=== PATIENT | male | born 1960 | race Two or more races ===

== ENCOUNTER 2017-03-21 05:22 | Inpatient (IN) | payer BC ==
--- NOTE | 2017-03-18 16:38 | Pre-op HX & Phy Repo 2 SIG ---
DATE OF ADMISSION: 03/21/2017 HISTORY OF PRESENT ILLNESS: The patient is a 57-year-old preoperative male to female sexual reassignment surgery, in overall good health. OPERATIONS: Hemorrhoidectomy at age 20 and abdominoplasty 35 years ago. MEDICATIONS: Finasteride, spironolactone, and estradiol in the past. ALLERGIES: None. REVIEW OF SYSTEMS: The patient denies any gastrointestinal or genitourinary symptomatology. PHYSICAL EXAMINATION: GENERAL: The patient is 5 foot 7 inches and 209 pounds. She had previously been 243 pounds. ABDOMEN: Slightly obese. There is a diastasis rectus. There are healed scars from abdominoplasty. The abdomen is soft and nontender. EXTREMITIES: Femoral pulses are 2+. RECTAL: Reveals the perianal skin and tissue to be normal with no prolapse with straining. IMPRESSION: Sexual reassignment surgery, male to female. DISCUSSION: I have had a complete discussion with the patient regarding the nature of my role in the surgery to be performed by Dr. Alex Justin, creating the space for the vagina. I have discussed the nature of the procedure, options, and risks including bleeding, infection, injury to urinary tract or rectum that could require subsequent additional operations including potential colostomy, urinary or evacuation dysfunction that could require additional treatment, etc. All questions have been answered. The patient understands and agrees to proceed. Alessio Gee M.D. DR: JANETH JOB#: [id number] CC: JERRY
[2017-03-21] VITALS (14 sets, daily range): BP systolic 116–166; BP diastolic 60–98
[~2017-03-21] VITALS: Ht 170.2 cm; Wt 97.5 kg
[2017-03-21 06:24] LABS: ANION GAP 18 (5-15); CALCIUM 8.9 mg/dL (8.6-10.2); CARBON DIOXIDE 20 mEQ/L (20-30); CHLORIDE 99 mEQ/L (98-107); CREATININE 0.9 mg/dL (0.5-0.9); GLOMERULAR FILTRATION RATE > 60 mL/min (>60); HEMOLYSIS 4; POTASSIUM 3.9 mEQ/L (3.4-4.9); SODIUM 137 mEQ/L (135-145)
[2017-03-21] MEDS ORDERED: PROSCAR5 MG ORAL (06:33)
[2017-03-21] MEDS ORDERED: SPIRONOLACTONE100 MG ORAL (06:33)
[2017-03-21] MEDS ORDERED: Bacitracin Oint 15gm Tube TOPIC ONE (07:15)
[2017-03-21] MEDS ORDERED: Surgicel 4in x 8in TOPIC ONE (07:15)
[2017-03-21] MEDS ORDERED: Lidocaine 0.5% Epi 50 mL Vial ONE (07:16)
[2017-03-21] MEDS ORDERED: Bacitracin 50000 Units Vial ONE (07:16)
[2017-03-21] MEDS ORDERED: Lidocaine 2% 20mg/ml/Epi 0.005mg/ml 20ml vial ONE (07:27)
[2017-03-21] MEDS ORDERED: Nimbex 2mg/ml Inj 10ML IVP ONE (07:30)
[2017-03-21] MEDS ORDERED: LR 1000ml ONE (07:30)
[2017-03-21] MEDS ORDERED: fentaNYL 100 mcg/2 mL IV ONE (07:30)
[2017-03-21] MEDS ORDERED: Midazolam 2mg/2ml Inj ONE (07:30)
[2017-03-21] MEDS ORDERED: NS Irrig 1000ml ONE (07:30)
[2017-03-21] MEDS ORDERED: Propofol 10mg/ml 20ml IV ONE (07:30)
[2017-03-21] MEDS ORDERED: Sterile Water Irrig 1000ml IRRIG ONE (07:30)
[2017-03-21] MEDS ORDERED: Bupivacaine w/Epi 0.25% 30ml Vial INJ ONE (07:35)
[2017-03-21] MEDS ORDERED: Meperidine 25mg/0.5ml Inj IV PRN ×2 (08:45→16:15)
[2017-03-21] MEDS ORDERED: LORazepam Inj 2mg/ml 1ml IV PRN ×2 (08:45→16:15)
[2017-03-21] MEDS ORDERED: Hydromorphone 0.5mg/0.5ml inj IVP PRN ×3 (08:45→16:30)
[2017-03-21] MEDS ORDERED: PCA HYDROmorphone 1mg/ml 30 ML IV PRN (08:45)
[2017-03-21] MEDS ORDERED: LR 1000ml 1,000 ML IV SCH ×2 (08:45→16:30)
[2017-03-21] MEDS ORDERED: LR 1000ml 1,000 ML IVLG SCH (08:45)
--- NOTE | 2017-03-21 09:00 | Anethesia Preoperative Eval ---
Anesthesia Pre-op PMH/ROS General Date of Evaluation: March 21, 2017 Time of Evaluation: 07:30 Anesthesiologist: Phoebe ASA Score: ASA 1 Mallampati Score Class I : Soft palate, uvula, fauces, pillars visible Class II: Soft palate, uvula, fauces visible Class III: Soft palate, base of uvula visible Class IV: Only hard plate visible Mallampati Classification: Class III Surgeon: Margoth Diagnosis: Gender dysphoria Surgical Procedure: Sexual reassignment male to female Family History: no anesthesia problems Allergies: Coded Allergies: No Known Allergies (Unverified , 03/17/17) Medications: see eMAR Past Medical History Cardiovascular: Denies: CAD, HTN, NC, arrhythmia, other, valve dz Pulmonary: Denies: COPD, SHERI, asthma, other Gastrointestinal/Genitourinary: Denies: CRI, ESRD, GERD, other Neurologic/Psychiatric: Denies: CVA, TIA, dementia, depression/anxiety, other Endocrine: Denies: DM, hypothyroidism, other, steroids HEENT: Denies: [place] (R), cataract (L), cataract (R), glaucoma, other Hematology/Immune: Denies: DVT, anemia, bleeding disorder, other Musculoskeletal/Integumentary: Denies: DDD, DJD, OA, RA, edema, other PMH Narrative: Denies significant medical history PSxH Narrative: Hemorrhoidectomy, abdominoplasty Anesthesia Pre-op Phys. Exam Physician Exam Last Vital Signs Date Time Temp Pulse Resp B/P Pulse Ox O2 Delivery O2 Flow Rate FiO2 03/21/17 06:05 98.6 84 18 130/84 100 Room Air Constitutional: NAD Neurologic: CN 2-12 intact Cardiovascular: RRR, no M/R/G Respiratory: CTA Gastrointestinal: S/NT/ND Airway Exam Mallampati Score: Class III MO: full ROM: full Teeth: intact Anesthesia Pre-op A/P Labs Chemistry Test 03/21/17 05:45 Sodium Level 137 mEQ/L (135-145) Potassium Level 3.9 mEQ/L (3.4-4.9) Chloride Level 99 mEQ/L (98-107) Carbon Dioxide Level 20 mEQ/L (20-30) Anion Gap 18 (5-15) H Blood Urea Nitrogen 13 mg/dL (7-23) Creatinine 0.9 mg/dL (0.5-0.9) Estimat Glomerular Filtration Rate > 60 mL/min (>60) Glucose Level 126 mg/dL (74-106) H Calcium Level 8.9 mg/dL (8.6-10.2) Studies Pre-op Studies: EKG - NSR, CXR - NAD Risk Assessment & Plan Assessment: Healthy Plan: GETA, [place] scope intubation Status Change Before Surgery: No Pre-Antibiotics Drug: Ancef, Gentamycin Given Within 1 Hr of Incision: Yes Time Given: 08:00 ANNETTE THURMAN M.D. March 21, 2017 09:00
--- NOTE | 2017-03-21 09:02 | Immediate Post-Op Evaluation ---
Immediate Post-Op Evalulation Immediate Post-Op Evalulation Procedure: Sexual reassignment male to female Date of Evaluation: March 21, 2017 Time of Evaluation: 16:00 IV Fluids: 3000 Estimated Blood Loss: 350 Urinary Output: 350 Blood Pressure Systolic: 137 Blood Pressure Diastolic: 89 Pulse Rate: 79 Respiratory Rate: 17 O2 Sat by Pulse Oximetry: 98 Temperature (Fahrenheit): 97.1 Pain Score (1-10): 0 Nausea: No Vomiting: No Complications No complication Patient Status: reacts, patent, extubated, none Hydration Status: adequate Drug: Ancef, Gentamycin Given Within 1 Hr of Incision: Yes Time Given: 08:00 ANNETTE THURMAN M.D. March 21, 2017 09:02
[2017-03-21] MEDS ORDERED: Rate Change PCA 1 Each MISC PRN (14:00)
--- NOTE | 2017-03-21 16:17 | Pre-Procedure Note/Attestation ---
Pre-Procedure Note/Attestation Complete Prior to Procedure Planned Procedure: not applicable Procedure Narrative: Male to female sexual reassignment Indications for Procedure Pre-Operative Diagnosis: gender dysphoria Attestation I attest that I discussed the nature of the procedure; its benefits; risks and complications; and alternatives (and the risks and benefits of such alternatives ), prior to the procedure, with the patient (or the patient's legal entry level marketing representative). I attest that, if there was a reasonable possibility of needing a blood transfusion, the patient (or the patient's legal entry level marketing representative) was given the [facility] standardized written summary, pursuant to the [place] Blood Safety Act ([place] Health and Safety Code # 1645, as amended). I attest that I re-evaluated the patient just prior to the surgery and that there has been no change in the patient's H&P, except as documented below: MIGUEL MCGARRY March 21, 2017 16:17
[2017-03-21] MEDS: PCA HYDROmorphone 1mg/ml 30 ML IV PRN (17:03)
[2017-03-21 17:12] LABS: EOSINOPHILS % (AUTO) 0.3 % (0.0-3.0); LYMPHOCYTES % (AUTO) 11.4 % (20.0-45.0); MEAN CORPUSCULAR HEMOGLOBIN 33.9 PG (27.0-31.0); MEAN CORPUSCULAR HGB CONC 35.6 G/DL (32.0-36.0); MEAN CORPUSCULAR VOLUME 95 FL (80-99); MEAN PLATELET VOLUME 6.8 FL (6.5-10.1); MONOCYTES % (AUTO) 5.5 % (1.0-10.0); NEUTROPHILS % (AUTO) 81.9 % (45.0-75.0); PLATELET COUNT 202 K/UL (150-450); RED BLOOD COUNT 2.95 M/UL (4.20-5.40); RED CELL DISTRIBUTION WIDTH 13.3 % (11.6-14.8); WHITE BLOOD COUNT 16.2 K/UL (4.8-10.8)
[2017-03-21] MEDS: D5 1/2NS w/KCl 20mEq 1,000 ML IV SCH (18:39)
[2017-03-21] MEDS: PCA shift volume MISC SCH (19:27)
--- NOTE | 2017-03-21 20:19 | Operative Note - Dictated ---
DATE OF OPERATION: 03/21/2017 SURGEON: Alessio Gee M.D. ANESTHESIOLOGIST: Lucien Sandhu M.D. PREOPERATIVE DIAGNOSIS: Gender dysphoria. POSTOPERATIVE DIAGNOSIS: Gender dysphoria. OPERATION PERFORMED: Creation of the space for the vagina with sexual reassignment surgery. DESCRIPTION OF PROCEDURE: I entered the operating room at the appropriate stage of the operation with preliminary steps performed by the primary surgeon, Dr. Alex Justin. With a rigid sigmoidoscope in the rectum, I incised the central perineal tendon with cautery, and then with blunt and cautery dissection created a space between the urethra and prostate anteriorly and the rectum posteriorly. The space measured 11.5 cm in depth and approximately 3 fingerbreadths in width. Hemostasis was carefully achieved with cautery. Following completion of the dissection, saline was placed into the operative field and then sigmoidoscopy performed with insufflation. There was no evidence of extravasation and no indication of rectal trauma from inspection with the sigmoidoscope. Air was suctioned out of the rectum and the sigmoidoscope removed. A Betadine soaked vaginal pack was packed into the depths of the space for the vagina and the procedure was then continued by Dr. Justin. Alessio Gee M.D. DR: JANETH JOB#: [id number] CC: JERRY
[2017-03-21 20:28] LABS: MEAN CORPUSCULAR HEMOGLOBIN 33.2 PG (27.0-31.0); MEAN CORPUSCULAR HGB CONC 34.9 G/DL (32.0-36.0); MEAN CORPUSCULAR VOLUME 95 FL (80-99); MEAN PLATELET VOLUME 7.3 FL (6.5-10.1); PLATELET COUNT 181 K/UL (150-450); RED BLOOD COUNT 2.86 M/UL (4.20-5.40); RED CELL DISTRIBUTION WIDTH 12.9 % (11.6-14.8); WHITE BLOOD COUNT 17.4 K/UL (4.8-10.8)
[2017-03-21 21:28] LABS: ANISOCYTOSIS 1+; BAND NEUTROPHILS % (MANUAL) 1 % (0-8); BASOPHILS % (MANUAL) 0 % (0-2); EOSINOPHILS % (MANUAL) 1 % (0-3); HYPOCHROMASIA 1+; LYMPHOCYTES % (MANUAL) 11 % (20-45); NEUTROPHILS % (MANUAL) 81 % (45-75); PLATELET ESTIMATE ADEQUATE; PLATELET MORPHOLOGY NORMAL; TOTAL CELLS COUNTED 100
[2017-03-21] MEDS: BuPROPion SR 150mg tab ORAL SCH (22:19)
[2017-03-22] VITALS (8 sets, daily range): BP systolic 96–123; BP diastolic 45–74
--- NOTE | 2017-03-22 00:09 | Operative Note - Dictated ---
DATE OF OPERATION: 03/21/2017 PREOPERATIVE DIAGNOSIS: Male to female gender dysphoria. POSTOPERATIVE DIAGNOSIS: Male to female gender dysphoria. PROCEDURE: Male to female sexual reassignment using penile inversion technique with vaginoplasty augmented with scrotal full-thickness skin graft. SURGEON: Alex Justin M.D. ANESTHESIA: General. 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 She has been on hormones. She has fulfilled other requirements for sexual reassignment surgery. The patient has adequate penile skin, but has a relatively hidden penis, which was uncircumcised. The patient is significantly overweight. She underwent genital electrolysis. DESCRIPTION OF OPERATION: The patient was given general anesthesia. She was placed on lithotomy position and prepped and draped in usual manner. Scrotal full-thickness skin graft was then taken from the penoscrotal junction to the perineum with the lateral scrotum left on each side. The skin graft was then set aside for use for the vagina. A circumcision incision was then made distally. The penile skin was then elevated off the Mckay's fascia. The penis was then transposed into the defect left by the removal of the scrotum. The right testicle was followed along the tunica vaginalis up to the external ring. The spermatic cord was clamped, cut, and double suture ligated with #0 silk sutures. Similar procedure was performed on the left side. The patient was extremely fat. Dissection proceeded down to the crura. A #1 Ethibond suture was then taken around the shira of each corporal body. A blunt sharp dissection was done over the pubic symphysis to dissect the subcutaneous tissue off of the lower rectus. This was done enough to be able to mobilize the penile skin and inverted into the vagina. In order to keep it in place, a bolster of #1 silk through the skin down to the rectus and through the skin again was tied over a [address] Alessio Gee then proceeded to dissect the vaginal space. He was able to get 11.5 cm of depth. The scrotal skin graft was then deflated to remove all subcutaneous tissue. Vaginal stent was a 14 cm x 4 cm specially made tissue security door installer. The skin graft was then formed over the security door installer with interrupted and then running 4-0 Vicryl sutures. The inverted penile skin was then sutured to the skin graft over the vaginal stent. Some of the foreskin was removed, but some was left remaining. There was adequate skin. The skin graft was formed over the vaginal stent with 100 mL inside. An incision was then made just lateral to the urethra on each side of the penis through the tunica albuginea. The tunica was then opened from the shira on each side up to the distal penis. The spongy tissue was dissected off of the inside of the tunica and removed. The cavernosal vessels were clamped, cut, and suture ligated with 4-0 Monocryl sutures. At the 12 o'clock location of the glans, a pentagonal shape portion of the glans was marked to make the neoclitoris. The base was on the tunica. An incision was then made through the glans around the neoclitoris. Using a Cortez scissors through the tip of the tunica, the neoclitoris was released from the rest of the glans. There was excellent bleeding from the tip of the neoclitoris. The neoclitoris was intact with the tunica and the neurovascular bundles. There was some distal penile skin that was left attached to the neoclitoris. This was then sutured on the each side with running 5-0 Monocryl. It was then sutured to itself dorsally to create a clitoral call. The tunica was then folded over itself over the pubic symphysis and sutured in place with 2-0 Monocryl sutures to stabilize the neoclitoris. The whole bulbocavernosus muscle was then dissected off of the bulb. The urethra was then cut in the proximal bulb. The spongy tissue was sharply dissected ventrally as much removed as possible. The urethra was spatulated at the 6 o'clock position. The urethral mucosa was then sutured to the bulb of the spongiosum with running locking 4-0 Monocryl suture. Vaginal packing from Dr. Gee was removed. The penile vaginal stent was then inserted into the vaginal space. An incision was made at the 6 o'clock, so that there would not be a high posterior lip. It was then sutured in place with interrupted 3-0 Vicryl sutures at the 5 and 7 o'clock position. An inverted U-incision was made over the neoclitoris and the inverted penile skin. Neoclitoris was then delivered and sutured in place with a running 5-0 Monocryl suture. A vertical incision was made over the neourethra, which was also delivered was then inverted through the inverted penile skin. It was then sutured to the inverted penile skin with a running locking 4-0 Monocryl suture. A 2-0 Monocryl suture was then taken lateral to the neoclitoris on each side from the skin to the endopelvic fascia and out to the skin again to create a sulcus on the lateral to the medial clitoris. A #7 Dae-Armas drain was then placed through a separate stab incision in the left perineum and placed lateral to the neovagina at the 3 o'clock position. A #10 Dae-Armas drain was placed through a stab incision in the right perineum to go along the right side of the wound then up into the pubic area. The labia majora were then formed by excising the dog-ears anteriorly on each side. Extra fat was removed on each side of the labia majora. The inverted penile skin was sutured to the introitus with interrupted 3-0 Monocryl suture on the posterior half. Anteriorly, buried 3-0 Monocryls were used through the subdermal tissue followed by subcuticular sutures of 4-0 Monocryls in the skin. There was good symmetry of the labia majora. A bolster was then placed on each side of the introitus to prevent the vaginal stent from being expelled. The patient tolerated the procedure well and left the operating room in good condition. Alex Justin M.D. DR: ROHIT JOB#: [id number] CC: JERRY
[2017-03-22] MEDS: ceFAZolin sod 1 GM in D5W 55 ML IV SCH ×2 (00:29→08:01)
[2017-03-22] MEDS: D5 1/2NS w/KCl 20mEq 1,000 ML IV SCH (02:00)
[2017-03-22 04:37] LABS: BASOPHILS % (AUTO) 0.2 % (0.0-2.0); EOSINOPHILS % (AUTO) 0.8 % (0.0-3.0); LYMPHOCYTES % (AUTO) 15.5 % (20.0-45.0); MEAN CORPUSCULAR HEMOGLOBIN 30.7 PG (27.0-31.0); MEAN CORPUSCULAR HGB CONC 33.9 G/DL (32.0-36.0); MEAN CORPUSCULAR VOLUME 91 FL (80-99); MEAN PLATELET VOLUME 7.8 FL (6.5-10.1); MONOCYTES % (AUTO) 7.3 % (1.0-10.0); NEUTROPHILS % (AUTO) 76.2 % (45.0-75.0); PLATELET COUNT 190 K/UL (150-450); RED BLOOD COUNT 2.63 M/UL (4.20-5.40); RED CELL DISTRIBUTION WIDTH 12.7 % (11.6-14.8)
--- NOTE | 2017-03-22 06:41 | 48 Hour Post Anesthesia Eval ---
Post Anesthesia Evaluation Procedure: Sexual reassignment male to female Date of Evaluation: March 22, 2017 Time of Evaluation: 06:30 Blood Pressure Systolic: 129 0: 78 Pulse Rate: 88 Respiratory Rate: 18 Temperature (Fahrenheit): 98.2 O2 Sat by Pulse Oximetry: 100 Airway: patent Nausea: No Vomiting: No Pain Intensity: 1 Hydration Status: adequate Cardiopulmonary Status: Stable Mental Status/LOC: patient returned to baseline Follow-up Care/Observations: As per surgery Post-Anesthesia Complications: No anesthetic complication Follow-up care needed: N/A ANNETTE THURMAN M.D. March 22, 2017 06:41
[2017-03-22] MEDS: PCA shift volume MISC SCH ×2 (07:00→19:10)
--- NOTE | 2017-03-22 08:52 | General Progress Note ---
Progress Note Progress Note Afebrile, VSS. Wounds fine. Moderate edema and drainage. Hce 23 so will give one unit autologous and check Hct tonight. MIGUEL MCGARRY March 22, 2017 08:52
[2017-03-22] MEDS: BuPROPion SR 150mg tab ORAL SCH ×2 (09:53→17:13)
[2017-03-22] MEDS: PCA HYDROmorphone 1mg/ml 30 ML IV PRN (17:12)
[2017-03-22 19:13] LABS: BASOPHILS % (AUTO) 0.3 % (0.0-2.0); EOSINOPHILS % (AUTO) 0.8 % (0.0-3.0); LYMPHOCYTES % (AUTO) 13.2 % (20.0-45.0); MEAN CORPUSCULAR HEMOGLOBIN 32.8 PG (27.0-31.0); MEAN CORPUSCULAR HGB CONC 35.4 G/DL (32.0-36.0); MEAN CORPUSCULAR VOLUME 93 FL (80-99); MONOCYTES % (AUTO) 5.3 % (1.0-10.0); NEUTROPHILS % (AUTO) 80.4 % (45.0-75.0); PLATELET COUNT 156 K/UL (150-450); RED CELL DISTRIBUTION WIDTH 12.7 % (11.6-14.8); WHITE BLOOD COUNT 11.7 K/UL (4.8-10.8)
[2017-03-23] VITALS (8 sets, daily range): BP systolic 121–145; BP diastolic 66–86
[2017-03-23 06:11] LABS: BASOPHILS % (AUTO) 0.3 % (0.0-2.0); MEAN CORPUSCULAR HEMOGLOBIN 30.3 PG (27.0-31.0); MEAN CORPUSCULAR HGB CONC 32.8 G/DL (32.0-36.0); MEAN CORPUSCULAR VOLUME 93 FL (80-99); MEAN PLATELET VOLUME 7.1 FL (6.5-10.1); MONOCYTES % (AUTO) 7.1 % (1.0-10.0); NEUTROPHILS % (AUTO) 75.6 % (45.0-75.0); PLATELET COUNT 180 K/UL (150-450); RED BLOOD COUNT 3.19 M/UL (4.20-5.40); RED CELL DISTRIBUTION WIDTH 12.7 % (11.6-14.8); WHITE BLOOD COUNT 11.3 K/UL (4.8-10.8)
[2017-03-23] MEDS: PCA shift volume MISC SCH ×2 (07:22→19:06)
[2017-03-23] MEDS: BuPROPion SR 150mg tab ORAL SCH ×2 (08:06→18:22)
[2017-03-23] MEDS ORDERED: Enoxaparin 40mg Inj SUBQ SCH (13:00)
[2017-03-23] MEDS ORDERED: Rate Change PCA 1 Each MISC PRN (13:00)
--- NOTE | 2017-03-23 13:17 | General Progress Note ---
Progress Note Progress Note Afebrile VSS/ Wounds fine.. Hct 29 after two units. Doing fine MIGUEL MCGARRY March 23, 2017 13:17
[2017-03-23] MEDS: Enoxaparin 40mg Inj SUBQ SCH (13:26)
[2017-03-23] MEDS ORDERED: PCA HYDROmorphone 1mg/ml 30 ML IV PRN (13:30)
[2017-03-24] VITALS (7 sets, daily range): BP systolic 104–135; BP diastolic 55–78
[2017-03-24] MEDS: PCA shift volume MISC SCH (07:08)
--- NOTE | 2017-03-24 07:53 | General Progress Note ---
Progress Note Progress Note Afebrile. Doing very well. MIGUEL Lewis JP March 24, 2017 07:52
[2017-03-24] MEDS: BuPROPion SR 150mg tab ORAL SCH ×2 (08:34→17:42)
[2017-03-24] MEDS: Enoxaparin 40mg Inj SUBQ SCH (08:38)
[2017-03-24 09:13] LABS: BASOPHILS % (AUTO) 0.7 % (0.0-2.0); EOSINOPHILS % (AUTO) 5.7 % (0.0-3.0); LYMPHOCYTES % (AUTO) 17.4 % (20.0-45.0); MEAN CORPUSCULAR HEMOGLOBIN 30.5 PG (27.0-31.0); MEAN CORPUSCULAR HGB CONC 32.9 G/DL (32.0-36.0); MEAN CORPUSCULAR VOLUME 93 FL (80-99); MEAN PLATELET VOLUME 7.5 FL (6.5-10.1); NEUTROPHILS % (AUTO) 69.2 % (45.0-75.0); PLATELET COUNT 191 K/UL (150-450); RED CELL DISTRIBUTION WIDTH 12.5 % (11.6-14.8); WHITE BLOOD COUNT 7.5 K/UL (4.8-10.8)
[2017-03-24] MEDS: Zolpidem 5mg tab ORAL PRN (23:34)
[2017-03-25] VITALS (7 sets, daily range): BP systolic 113–130; BP diastolic 69–83
[2017-03-25 05:20] LABS: BASOPHILS % (AUTO) 0.7 % (0.0-2.0); EOSINOPHILS % (AUTO) 4.9 % (0.0-3.0); LYMPHOCYTES % (AUTO) 22.1 % (20.0-45.0); MEAN CORPUSCULAR HEMOGLOBIN 30.5 PG (27.0-31.0); MEAN CORPUSCULAR HGB CONC 33.4 G/DL (32.0-36.0); MEAN CORPUSCULAR VOLUME 91 FL (80-99); MEAN PLATELET VOLUME 7.8 FL (6.5-10.1); MONOCYTES % (AUTO) 7.1 % (1.0-10.0); NEUTROPHILS % (AUTO) 65.2 % (45.0-75.0); PLATELET COUNT 235 K/UL (150-450); RED BLOOD COUNT 3.37 M/UL (4.20-5.40); RED CELL DISTRIBUTION WIDTH 12.4 % (11.6-14.8); WHITE BLOOD COUNT 7.8 K/UL (4.8-10.8)
--- NOTE | 2017-03-25 07:50 | General Progress Note ---
Progress Note Progress Note Afebrile. VSS. Dooing very well. Hct 35. Low ALEXANDER. MIGUEL MCGARRY March 25, 2017 07:50
[2017-03-25] MEDS: BuPROPion SR 150mg tab ORAL SCH ×2 (08:14→17:27)
[2017-03-25] MEDS: Enoxaparin 40mg Inj SUBQ SCH (08:16)
[2017-03-25] MEDS ORDERED: Tubing IV Secondary IV ONE (09:45)
[2017-03-25] MEDS: Zolpidem 5mg tab ORAL PRN (23:25)
[2017-03-26 04:00] VITALS: BP 140/85
[2017-03-26 08:00] VITALS: BP 128/78
--- NOTE | 2017-03-26 08:59 | General Progress Note ---
Progress Note Progress Note Afebriile. Wounds fine. Mild swelling. MIGUEL MCGARRY March 26, 2017 08:59
[2017-03-26] MEDS: BuPROPion SR 150mg tab ORAL SCH ×2 (09:22→17:57)
[2017-03-26] MEDS: Enoxaparin 40mg Inj SUBQ SCH (09:25)
[2017-03-26 12:00] VITALS: BP 113/62
[2017-03-26 16:00] VITALS: BP 124/66
[2017-03-26 20:00] VITALS: BP 119/69
[2017-03-26] MEDS: Zolpidem 5mg tab ORAL PRN (23:18)
[2017-03-27] VITALS: BP 127/78
[2017-03-27 04:00] VITALS: BP 131/77
[2017-03-27 08:00] VITALS: BP 120/68
[2017-03-27] MEDS: BuPROPion SR 150mg tab ORAL SCH (08:40)
[2017-03-27] MEDS: Enoxaparin 40mg Inj SUBQ SCH (08:43)
--- NOTE | 2017-03-27 09:55 | General Progress Note ---
Progress Note Progress Note Afebrile. VSS. Wounds all fine. All drains out and Olivas out. Discharge. MIGUEL MCGARRY March 27, 2017 09:55
[2017-03-27] MEDS ORDERED: OXYCODONE-ACET1 EAC3 ORAL (11:34)
[2017-03-27] MEDS ORDERED: CEPHALEXIN500 M1 ORAL (11:34)
--- NOTE | 2017-03-28 12:41 | Discharge Summary ---
Discharge Summary Hospital Course Date of Admission March 21, 2017 at 05:22 Date of Discharge March 27, 2017 at 11:30 Admitting Diagnosis gender dysphoria Reason for Hospitalization: elective surgery HPI Jazmin Baeza is a 57 year old female who was admitted on March 21, 2017 at 05: 22 for Gender Dysphoria and elective surgery Procedures -s/p 03/[address] Justin Male to female sexual reassignment using penile inversion technique with vaginoplasty augmented with scrotal full-thickness skin graft. -s/p 03/21 dr Gee Creation of the space for the vagina with sexual reassignment surgery. Hospital Course course of recovery uneventful initially with mild leucocytosis on empiric antibiotics leukocytosis resolved transfused with 2 u if OEBC, HH stable; prior to dc HH -10.3/30.8 initially with drain and Olivas ; all dc able to void freely wound clean pain management IS at the bedside able to ambulate freely tolerated diet had BM stable for dc fup with surgeon as outpt DISCHARGE DIAGNOSIS gender dysphonia sexual reassignment surgery, male to female anemia s/p blood transfusion postoperative pain - controlled Discharge Medications Continued Medications: Cephalexin* (Cephalexin*) 500 Mg Tablet 500 MG ORAL BID, CAP Finasteride* (Proscar*) 5 Mg Tablet 5 MG ORAL DAILY, #30 TAB 0 Refills Oxycodone Hcl/Acetaminophen 5-325* (Oxycodone-Acetaminophen 5-325*) 1 Each Tablet 1 TAB ORAL Q3HR PRN for For Pain, TAB 0 Refills Spironolactone* (Spironolactone*) 100 Mg Tablet 250 MG ORAL DAILY, TAB Discharge Condition Upon Discharge: stable Discharge Disposition Patient was discharged to Home () Discharge Diagnoses: Discharge Instructions Discharge Instructions Special Instructions I have been assigned to complete a D/C Summary on this account. I was not involved in the patient management Anastasiya Blanca NP ([place]te[place]) March 28, 2017 12:41
== END 2017-03-27 11:30 | disposition home or self-care (01) | DRG 876 ==
LOC: SDSOVERFLO 05:22 → EDSEX 05:22 → 3E 17:12
PROC: 0W4M0Z0 (ICD-10-PCS; principal; 2017-03-21 07:30)
PROC: 30233N1 Transfusion of Nonautologous Red Blood Cells into Peripheral Vein, Percutaneous Approach (ICD-10-PCS; 2017-03-22)
DX: F64.8 Other gender identity disorders (principal); D64.9 Anemia, unspecified
CPT/HCPCS: 36415; 80048; 85007; 85025; 86850; 86900; 86901; 86920; 87081; 94003; 94150; J1580; J2180; J2250; J2405